=== PATIENT | male | born 1935 | race Caucasian/White ===

== ENCOUNTER 2020-04-10 15:02 | Outpatient (NON) | payer MEDICARE, SELFPAY ==
[2020-04-10 15:44] LABS: Anion Gap 9 mmol/L (8-16); Blood Urea Nitrogen 48 mg/dL (7-18); Calcium 9.6 mg/dL (8.5-10.1); Carbon Dioxide 35 mmol/L (21-32); Chloride 96 mmol/L (98-108); Estimated Glomerular Filt Rate 31; Glucose 75 mg/dL (70-99); Osmolality Calculated 301 mOsm/kg (285-295); Potassium 3.5 mmol/L (3.5-5.1); Sodium 140 mmol/L (136-145)
[2020-04-10 16:27] LABS: BNP 4830 pg/mL (0-100)
== END 2020-04-10 15:03 ==
LOC: CHSLAB 15:10
PROVIDERS: Visit Provider Internal Medicine Cardiovascular Disease
DX: I50.32 Chronic diastolic (congestive) heart failure (principal)
CPT/HCPCS: 36415; 80048; 83880